=== PATIENT | male | born 1960 | race Caucasian/White ===

== ENCOUNTER 2017-07-19 09:27 | Emergency (ER) | payer SELFPAY ==
[~2017-07-19] VITALS: Ht 175.3 cm; Wt 83.0 kg
[~2017-07-19 09:27] MED LIST: AMOX-291 PO
[2017-07-19 09:29] VITALS: BP 130/77
[2017-07-19] MEDS ORDERED: DEXAMETHASONE 4 MG TABLET ONE (09:59)
[2017-07-19] MEDS ORDERED: BICILLIN-LA 1,200,000 UNITS/2 ML IM ONE (10:00)
[2017-07-19] MEDS ORDERED: DEXAMETHASONE 4 MG TABLET PO ONE (10:00)
== END 2017-07-19 10:45 | disposition home or self-care (01) ==
LOC: ED 10:39
DX: J02.0 Streptococcal pharyngitis (principal)
CPT/HCPCS: 96372; 99283; J0561

== ENCOUNTER 2021-01-30 15:16 | Emergency (ER) | payer SELFPAY ==
[~2021-01-30] VITALS: Ht 175.3 cm; Wt 87.2 kg
[2021-01-30] MEDS ORDERED: HYDROcodone/APAP 10/325 MG TABLET ONE (16:25)
[2021-01-30] MEDS ORDERED: KETOROLAC 30 MG/1 ML ONE (17:23)
[2021-01-30 17:25] VITALS: BP 129/72
[2021-01-30] MEDS ORDERED: KETOROLAC 30 MG/1 ML IM ONE (17:30)
== END 2021-01-30 18:21 | disposition home or self-care (01) ==
LOC: ED 18:15
DX: M25.552 Pain in left hip (principal); F17.210 Nicotine dependence, cigarettes, uncomplicated
CPT/HCPCS: 72110; 73502; 96372; 99284; J1885